=== PATIENT | male | born 1990 | race African-American/Black ===

== ENCOUNTER 2017-04-14 17:35 | Emergency (ER) | payer BC ==
[~2017-04-14 17:35] MED LIST: NO MEDICATIONS
== END 2017-04-14 18:27 | disposition home or self-care (01) ==
LOC: SED 17:35
DX: S61.215A Laceration without foreign body of left ring finger without damage to nail, initial encounter (principal); W45.8XXA Other foreign body or object entering through skin, initial encounter; Y92.009 Unspecified place in unspecified non-institutional (private) residence as the place of occurrence of the external cause
CPT/HCPCS: 29130; 99283